=== PATIENT | female | born 1960 | race Caucasian/White ===

== ENCOUNTER → 2020-05-22 15:12 | Outpatient (CLI) | payer OTHER, SELFPAY ==
[2017-06-02 17:24] VITALS: BMI 35.1
== END ==
PROVIDERS: PCP Internal Medicine; Visit Provider Nurse Practitioner
DX: R05 Cough (principal)
CPT/HCPCS: 87633

== ENCOUNTER → 2024-12-26 | Outpatient (CLI) | payer OTHER, SELFPAY | END | disposition home or self-care (01) | LOC: LABSPEC 08:30 | PROVIDERS: PCP Internal Medicine; Visit Provider Physician Assistant | DX: R30.0 Dysuria (principal) | CPT/HCPCS: 87086; 87088 ==